=== PATIENT | female | born 1985 | race Caucasian/White ===

== ENCOUNTER 2024-10-04 05:53 | Emergency (ER) | payer MEDICAID ==
[~2024-10-04] VITALS: Ht 157.5 cm; Wt 81.0 kg
[2024-10-04 06:03] VITALS: BP 147/106; TEMP 98; O2SAT 96
[2024-10-04 06:05] VITALS: PULSE 79; RESP 16; O2SAT 100
[2024-10-04] MEDS ORDERED: AMOX1TAB16 MT (06:26)
== END 2024-10-04 06:45 | disposition home or self-care (01) ==
LOC: ER 05:53
DX: H66.92 Otitis media, unspecified, left ear (principal); E78.00 Pure hypercholesterolemia, unspecified; I10 Essential (primary) hypertension
CPT/HCPCS: 99283